=== PATIENT | male | born 2000 | race Caucasian/White ===

== ENCOUNTER 2025-08-20 07:12 | Emergency (ER) | payer OTHER, SELFPAY ==
[2025-08-20 07:20] VITALS: BP 136/63; PULSE 76; RESP 20; TEMP 36.4; O2SAT 97; BMI 34.1
--- NOTE | 2025-08-20 07:28 | ED_ITS ---
HPI - General Adult General Chief complaint: General Medical Stated complaint: Sinus congestion, stomach probs Time Seen by Provider: 08/20/25 07:31 Source: patient and RN notes reviewed Mode of arrival: ambulatory Limitations: no limitations History of Present Illness ED Provider: Ida Whitt PA-C HPI narrative: This is a 25-year-old male, with no known medical problems, who presents emergency department with concerns of sinus congestion for the last 2-3 days. Denies any fevers, cough, sore throat, chest pain, shortness of breath. He states that he also would like to be evaluated for ongoing nausea and vomiting that has been occurring for years. He states that when he awakes up in the morning he feels very nauseous and has abdominal pain in his unable to eat breakfast. He states that he is currently visiting from [place] as he is currently on an [employer] job. He denies taking any medications at home to treat his current symptoms. MD complaint: Congestion Onset (ago): day(s) Quality: aching Pain Consistency: constant Relieving factors: none Exacerbating factors: none Related Data Previous Rx's ?Medication ?Instructions ?Recorded fluticasone propionate 50 2 spray intranasal DAILY 2 w eeks 08/20/25 mcg/actuation nasal #16 grams spray,suspension (Flonase Allergy Relief) Allergies Allergy/AdvReac Type Severity Reaction Status Date / Time No Known Allergies Allergy Verified 08/20/25 07:24 Review of Systems Review of Systems: Yes all other systems are reviewed and are negative Constitutional: Constitutional: Reports as per [facility] Social History Social History Smoked in Last 30 Days: Yes Use of substances other than those prescribed or required for medical reasons: No Advance Directives: No Advance Directives Information Provided: No Do you have a plan to hurt others: No Plan Physical Exam ED Vital Signs: Vital Signs - 24 hr 08/20/25 09:33 Temperature 97.9 F Pulse Rate 72 Respiratory Rate 16 Blood Pressure 128/66 Pulse Oximetry 98 Oxygen Delivery Method Room Air BMI result Body Mass Index 34.1 Const General: cooperative, comfortable and no acute distress Orientation/consciousness: patient oriented x3 Limitations: no limitations HENMT Other: Sinuses nontender Head: Yes normal to inspection, Yes normocephalic and Yes atraumatic Ears: hearing grossly normal bilaterally General nose exam: Normal external nose present Face and sinus: Yes normal facial exam Mouth: Normal oral and palatal mucosa present, oropharynx normal and moist mucous membranes Throat: Yes posterior oropharynx normal Eyes General: appearance normal, both eyes and all related structures Eyelids: Yes eyelids normal Conjunctivae: conjunctivae normal Sclerae: sclerae normal Pupils: Equal, round and reactive pupils present EOM: EOMs intact bilaterally Neck Neck: Yes normal visual inspection, Yes full ROM and Yes no lymphadenopathy Lymphatic: no lymphadenopathy noted Chest Chest palpation & inspection: normal inspection of the chest Resp Effort & Inspection: normal respiratory effort and able to speak in complete sentences Auscultation: clear to auscultation bilaterally, no crackles, no rales, no rhonchi and no wheezes Cardio Rate: regular rate Rhythm: regular rhythm Heart sounds: S1 normal heart sound present and S2 normal heart sound present GI Other: Abd soft, nontender, nondistended Inspection: Yes normal to inspection Skin General skin exam: no rashes or lesions noted Trauma: no lacerations or abrasions Wounds: no wounds Neuro General: patient oriented x3 and moves all extremities Cranial nerves: Yes Equal, round and reactive pupils present Extrem General: Yes normal to inspection Right upper extremity: normal to inspection Left upper extremity: normal to inspection Right lower extremity: normal to inspection Left lower extremity: normal to inspection Medical Decision Making Medical Decision Making [facility] Narrative: This is a 25-year-old male, with no known medical problems, who presents emergency department with concerns of sinus congestion for the last 2-3 days. On arrival, vital signs within normal limits. He is speaking full sentences under no acute distress. Patient with nontender sinuses. Sounds nasally congested. Patient also endorsing abdominal pain, and nausea that has been ongoing for years. Abd is soft, nontender today. Will obtain viral swabs and labs. >>Pt refusing labs due to needle phobia. negative viral swabs. Sxs likely viral vs allergic in nature. Will tx with flonase. Given return precautions. Advised to f/u with PCP regarding abd pain and nausea. He understands and agrees with plan. Stable for d.c. Differential Diagnosis Differential Diagnoses: The differential diagnosis associated with the presentation includes URI, covid, flu, rhinitis, sinusitis Admission/Observation Consideration of admission/observation: Escalation of care including admission/observation considered Lab Data [facility] Lab Attestation statement: I reviewed the patient's lab results. neg Labs: Lab Results 08/20/25 Range/Units 07:40 COVID-19 (FEDE) Negative (Negative) COVID-19 Clin Com See Note Influenza Type A (JOSH) Negative (Negative) Influenza Type B (JOSH) Negative (Negative) Influenza A & B Note See Note Radiology Impression Discussion of test interpretation with radiology: I have reviewed the radiologist's reading. External Record Review External record reviewed: Inpatient record, Office record, Outpatient record, Prior outpatient labs, Prior outpatient radiology, Primary care record and Outside ED record Discharge Plan Discharge Clinical Impression: Rhinitis Patient Disposition: Home, Self-Care Instructions: Cold Symptoms (ED) Additional Instructions: You were seen in the ER with a complaint of nasal congestion. You may have a virus that is causing you to have the symptoms. You tested negative for COVID and flu today. You also wanted to have your abdomen evaluated however you refused blood work. We are unable to rule out any abdominal process if you do not want to have your blood performed. He has follow-up with your primary care physician regarding this visit. Please use fluticasone nasal spray to help with nasal congestion. Drink plenty of fluids get plenty of rest. If any new or worsening symptoms occur including but not limited to worsening pain, fevers, chills, chest pain, shortness of breath, please seek emergent care. Prescriptions: New fluticasone propionate [Flonase Allergy Relief] 50 mcg/actuation spray,suspension 2 spray intranasal DAILY 14 Days Qty: 16 0RF Rx Instructions: administer into each nostril Stand Alone Forms: Work/School Release Interventions: ED Discharge Assessment Last Done: 08/20/25 09:33 Discharge Date/Time: 08/20/25 09:33 Print Language: Austrian
--- NOTE | 2025-08-20 07:47 | MHC.EDTECH ---
pt refused blood work!
[2025-08-20 08:07] LABS: COVID-19 Test Negative (Negative); IDNOW Serial# 6674DD1D
[2025-08-20 08:20] LABS: IDNOW Serial# 08D9AD1C; Influenza B2 Negative (Negative)
--- NOTE | 2025-08-20 08:27 | PC.NURSE ---
patient a&ox3, rr equal/non labored, vss, pt c/o 6-04/25 sinus area pain, labs drawn by tech, plan of care ongoing
--- OUTSIDE RECORDS SUMMARY | 2025-08-20 08:42 | XMS_ITS | Clinical Summary ---
[facility] Address [address] [place] [id number] Care Team Providers Care Senior Strategy Manager Name Role Phone Provider, No Known Primary Care Provider Unavail able Allergies No known active allergies Medications sulfamethoxazol e-trimethoprim (BACTRIM DS,SEPTRA DS) 800-160 MG per tablet Take 1 tablet by mouth 2 (Two) Times a Day. 14 tablet 7 Active neomycin-polymy odin-hydrocortis one (CORTISPORIN) 3.5-00983-7 otic solution Administer 3 drops into both ears 4 (Four) Times a Day. 10 mL 8 Active methylPREDNISol one (MEDROL, BIBI,) 4 MG tablet Take as directed on package instructions. 21 tablet 9 Active ibuprofen (ADVIL,MOTRIN) 800 MG tablet Take 1 tablet by mouth Every 8 (Eight) Hours As Needed for Moderate Pain. 60 tablet 4 Active ondansetron (Zofran) 4 MG tablet Take 1 tablet by mouth Every 8 (Eight) Hours As Needed for Nausea or Vomiting. 30 tablet 4 Active predniSONE (DELTASONE) 20 MG tablet Take 1 tablet by mouth 3 (Three) Times a Day With Meals. 15 tablet 4 Active nystatin susp + lidocaine viscous (MAGIC MOUTHWASH) oral suspension Swish and swallow 5 mL 4 (Four) Times a Day. 140 mL 4 Active ketorolac (TORADOL) 10 MG tablet Take 1 tablet by mouth Every 6 (Six) Hours As Needed for Severe Pain. 15 tablet 4 Active Social History Tobacco Use Types Packs/Day Years Used Date Smoking Tobacco: Never Smokeless Tobacco: Never Alcohol Use Standard Drinks/Week Comments No 0 (1 standard drink = 0.6 oz pur e alcohol) Abuse Screen Answer Date Recorded Feels Unsafe at Home or Work/School no 10/03/2024 Feels Threatened by Someone no 09/16 Does Anyone Try to Keep You From Having Contact with Others or Doing Things Outside Your Home? no 10/03/2024 Physical Signs of Abuse Present no 10/03/2024 Sex and Gender Information Value Date Recorded Sex Assigned at Not on file Legal Sex Male 4:07 PM EDT Gender Identity Not on file Sexual Orientation Not on file Last Filed Vital Signs Vital Sign Reading Time Taken Comments Blood Pressure 145/69 10/07/2024 9:58 AM EST Pulse 100 10/07/2024 9:58 AM EST Temperature 37.1 C (98.8 F) 10/07/2024 9:58 AM EST Respiratory Rate 17 10/07/2024 9:58 AM EST Oxygen Saturation 99% 10/07/2024 9:58 AM EST Inhaled Oxygen Concentration - - Weight 104 kg (230 lb) 10/07/2024 9:58 AM EST Height 180.3 cm (5' 11 ) 10/07/2024 9:58 AM EST Body Mass Index 32.08 10/07/2024 9:58 AM EST Plan of Treatment Health Maintenance Due Date Last Done Comments ANNUAL PHYSICAL 06/19/2017 HEPATITIS C SCREENING 06/19/2017 TDAP/TD VACCINES (2 - Td or Tdap) 12/15/2021 12/16/2011 INFLUENZA VACCINE 05/17/2025 08/11/2015 Pneumococcal Vaccine 0-49 Aged Out 2000, 11/07/2000 No longer eligible based on patient's age to complete this topic [place] [address] [place] [id number] [employer] [facility] [employer] [place] [address] [phone] [place] [address] Care Teams Senior Strategy Manager Relationship Specialty Start Date End Date Provider, No Known [facility] [place] [address] PCP - General 01/07/16
[2025-08-20 09:33] VITALS: BP 128/66; PULSE 72; RESP 16; TEMP 36.6; O2SAT 98
== END 2025-08-20 09:33 | disposition home or self-care (01) ==
PROVIDERS: Physician Assistant Medical; Emergency Provider Emergency Medicine
DX: J31.0 Chronic rhinitis (principal)
CPT/HCPCS: 87502; 87635; 99283; 99284